=== PATIENT | female | born 1990 | race Caucasian/White ===

== ENCOUNTER 2016-05-30 08:41 | Inpatient (IN) | payer OTHER ==
[~2016-05-30] VITALS: Ht 162.6 cm; Wt 80.3 kg
[2016-05-30] MEDS ORDERED: diphenhydrAMINE 50 mg Capsule PO PRN (09:05)
[2016-05-30] MEDS ORDERED: Sodium Chloride LOK Flush 10 mL Syringe IVFLUSH PRN ×2 (09:05→11:35)
[2016-05-30] MEDS ORDERED: Lactated Ringer's 1,000 ML IV SCH ×3 (09:12→21:39)
[2016-05-30] MEDS ORDERED: Misoprostol 25 mCg/0.25 Tablet VAGINAL SCH (09:15)
[2016-05-30 10:01] LABS: BASOPHILS % (AUTO) 0.1 % (0-3); EOSINOPHILS % (AUTO) 1.3 % (0-5); MONOCYTES % (AUTO) 7.5 % (4-12); Mean Corpuscular Volume 91.5 fL (81-100); NEUTROPHILS % (AUTO) 74.1 % (40-74); Platelet Count 277 bil/L (150-400)
[2016-05-30] MEDS ORDERED: PREN1TAB87 PO (10:10)
--- NOTE | 2016-05-30 10:19 | PCM.HPOB ---
Subjective Date of Service: May 30, 2016 Referring Provider: Admitting Physician: Sofiya Heard MD Primary Care Physician: Pushpa Shaikh MD Attending Physician: Sofiya Heard MD Chief Complaint Hypertension at term History of Present History of Present Illness at 39 weeks 6 days, reports uncomplicated until one week ago were doing routine visit she was found to have elevated blood pressure reading 142/92, 149/96 on recheck. This morning on weekly follow-up she was found to have blood pressure of 139/98, and 152/97 on recheck. 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 Hx Tobacco Use: No Smoking Status: Never Smoker Hx Alcohol Use: Yes (occasional wine, not during ) Hx Substance Use: No Past Family History Family History Maternal grandfather colon cancer Paternal grandfather diabetes type II Paternal grandmother colon cancer Living Arrangement: with Family Review of Systems Constitutional: Y: Chills, Fever, Weakness Eyes: Denies: Vision Changes Cardiovascular: Denies: Chest Pain Respiratory: Denies: Cough, Pleuritic Chest Pain, SOB with Exertion Gastrointestinal: Reports: Diarrhea, Denies: Abdominal Pain, Nausea, Vomiting Genitourinary: Denies: Dysuria Musculoskeletal: Denies: Limitation of Function Skin: Denies: Rash Neurological: Denies: Dizziness, Numbness, Weakness Psychologic: Reports: Nervousness (regarding first delivery) Medications Home medications Daily vitamin Allergy Coded Allergies: Nut Tree (Unverified Allergy, Unknown, 05/30/16) Exam Vital Signs 37.2C 90 bpm 133/87 Weight 176 pounds Exam Baseline heart rate 120, moderate variability. Objective Lying in bed comfortably, no apparent distress. Constitutional: Well-developed, Well-nourished, Normal habitus HEENT: Atraumatic, EOMI, Scleral Anicteric Lungs: Clear to Auscultation Heart: Regular Rate/Rhythm, Normal S1, Normal S2, No Murmurs/Rubs/Gallops Abdomen: Gravid, Normal bowel sounds, No tenderness Lymphatic: Normal: Axilla Palpation of Nodes, Neck Palpation of Nodes Extremities: Pulses Palpable x4, No Edema Neurological/Psychiatric: Alert, Oriented X3, Cooperative, No Acute Distress Neuro: Grossly Neurologically Intact, Normal Tone, Normal Speech, Sensation Intact Labs/Diagnostics Labs CBC, CMP, creatinine protein ratio and crossmatch pending Ultra Sound Ultrasound performed 01/13/2016 showed single living intrauterine gestation placenta posterior, without previa, EFW 39%, heart rate 143 RIK 9.2 with normal anatomic survey. Maternal Blood Type: A Group B Strep Results: Negative Previous with GBS: No Rubella: Immune Lab History: Negative for: Hx Gonorrhea, Hx HIV, Hx Herpes, Hx Syphilis OB Intrapartum Assessment/Plan Assessment 25-year-old woman presents at 39 and 6 days gestation found to have increasing blood pressure, asymptomatic eclampsia symptoms. Membranes intact. With reassuring heart rate tracing. Problems: (1) Elevated blood pressure affecting in third trimester, antepartum Status: Acute ICD Code: O13.3 Pain Management: Not opposed to epidural, but wants to wait before having it placed, if she feels she needs it at all. Pain Evaluation: Adequate Pain Control Intrapartum plan Begin induction with Cytotec. Laboratory evaluation signs of preeclampsia, and organ damage. Continue with induction and plan for spontaneous vaginal delivery. Attending Statement Patient seen and examined. Sent over from clinic for induction of labor due to gestational hypertension. She is doing well and is currently asymptomatic, blood pressures are mildly elevated in the nonsevere range. has otherwise been uncomplicated. Plan will be induction of labor with cervical ripening with cytotec and pitocin when able. Currently cervix is 1/50/-3. Will recheck PIH labs. The remainder of her laboratory data is within normal limits. She is varicella non immune, will vaccinate . Will follow closely, magnesium if severe range blood pressures or severe features of pre-eclampsia identified. Iron Li DO May 30, 2016 10:10 Sofiya Heard MD May 30, 2016 11:56
[2016-05-30] MEDS ORDERED: Methylergonovine 0.2 mg/mL Inj IM PRN ×2 (11:35→21:40)
[2016-05-30] MEDS ORDERED: Oxytocin 30 Units/500 mL LR 30 UNITS in IV Premix 1 EACH IV PRN ×2 (11:35→21:40)
[2016-05-30] MEDS ORDERED: Hemorrhage Kit, Post Partum XX ONE ×2 (11:35→21:40)
[2016-05-30] MEDS ORDERED: Oxytocin 10 Unit/mL Inj IM PRN ×2 (11:35→21:40)
[2016-05-30] MEDS ORDERED: Carboprost 250 mCg/mL Inj IM PRN ×2 (11:35→21:40)
[2016-05-30] MEDS ORDERED: Lactated Ringer's 1,000 ML IV PRN (11:35)
--- NOTE | 2016-05-30 16:47 | PCM.PNOBIP ---
Subjective Date of Service May 30, 2016 Subjective Doing well. Feeling contractions currently. She is s/p one dose of cytotec. She is avila too frequently to place a second dose. Group B Strep Results: Negative Rubella: Immune Blood Type: A Labs Laboratory Tests 05/30/16 09:45: White Blood Count 11.2, Red Blood Count 4.22, Hemoglobin 13.1, Hematocrit 38.6, Mean Corpuscular Volume 91.5, Mean Corpuscular Hemoglobin 31.0, Mean Corpuscular Hemoglobin Concent 33.9, Red Cell Distribution Width 12.9, Platelet Count 277, Neutrophils (%) (Auto) 74.1, Lymphocytes (%) (Auto) 16.7, Monocytes ( %) (Auto) 7.5, Eosinophils (%) (Auto) 1.3, Basophils (%) (Auto) 0.1 Exam Vital Signs Vital Signs Contraction frequency in minutes: MVUs: Vital Signs: VS reviewed, stable (120-30's/60-80's) Heart Tracings Heart Tones Baseline 120/moderate/+ accels bpm Heart Rate Variability: Moderate Heart Rate Accelleration: Present Heart Rate Deceleration: Absent Heart Rate Category: I Tocometry/IUPC Q 1-5 Contraction frequency in minutes: Sterile Vaginal Exam Cervical Dilation: 2 cms Cervical Effacement: 80 % Station: -2 Exam General: Alert, Oriented X3, Cooperative, No Acute Distress (Parish balloon placed, inflated with 50 cc normal saline. ) OB Intrapartum Assessment/Plan Problems: (1) Elevated blood pressure affecting in third trimester, antepartum Plan: Blood pressures reviewed with labs. Labs consistent with mild pre- eclampsia. Pr:Cr ratio 0.33, labs nonsevere, continue to monitor Status: Acute ICD Code: O13.3 Intrapartum plan: Continue expected management (Will start low dose pitocin at 2mu while parish balloon is in place. Continue expectant management. ) Pain Evaluation: Adequate Pain Control Sofiya Heard MD May 30, 2016 16:47
[2016-05-30] MEDS: Lactated Ringer's 1,000 ML IV SCH ×2 (16:52→18:15)
[2016-05-30] MEDS ORDERED: EPHEDrine Sulfate 50 mg/mL Inj IVPUSH PRN (17:40)
[2016-05-30] MEDS ORDERED: fentaNYL 2 mCg/mL-Bupiv 0.125% 100 ML EPIDURAL SCH (17:40)
[2016-05-30] MEDS ORDERED: Atropine 1 mg/10 mL (Code) Syringe IVPUSH PRN (17:40)
[2016-05-30] MEDS ORDERED: Ondansetron 2 mg/mL 2 mL Inj IVPUSH PRN (17:40)
[2016-05-30] MEDS ORDERED: Lactated Ringer's 500 ML IV ONE (17:40)
--- NOTE | 2016-05-30 18:24 | PCM.HPANE ---
Patient Data Date of Service: May 30, 2016 Surgeon Admitting Provider:Sofiya Heard MD Attending Provider:Sofiya Heard MD Primary Care Physician:Pushpa Shaikh MD Other Provider:Stefanie Mcraeingham Anesthesia Reason for Visit Induction INDUCTION Ht/WT & BMI Height (Centimeters): 162 Weight (Kilograms): 80.3 Body Mass Index 30.4 Allergies Coded Allergies: Nut Tree (Unverified Allergy, Unknown, 05/30/16) Diabetes History Hx Diabetes?: No MRSA MRSA: No Medications Hypertension Medication: No Home Meds Incl Beta Tammy: No Reported Medications Vit W-Ca,Fe,FA(<1 mg) ( Vitamins)1 Each Tablet1 Each PO DAILY 05/30/16 History History of ENT Problems?: No Hx of Heart Problems?: Yes Cardiovascular History: Positive for:: Hypertension Hx of Respiratory Problem?: No Hx Neurologic Problems?: No Hx of GI Problems?: No Hx of Problems?: No Female Hx: Positive for:: Currently Hx Musculoskeletal Problems?: No Hx of Psycho/Social Problems?: No Hx Surgeries?: No Hx Any Other Health Problems?: No Hx Alcohol Use: Yes (occasional wine, not during )Hx Substance Use: No Smoking Status: Never Smoker Stop/Bang Treated for Sleep Apnea?: No Do You Have a CPAP Machine?: No AMARILIS Risk Assessment: Low Risk, <3 Yes Risk Assessment Category Category 1A: Patient has history of documented sleep apnea, and HAS NOT received any narcotic, sedative or anesthesia administration during this stay. Category 1B: Patient has history of documented sleep apnea, and HAS received any narcotic , sedative or anesthesia administration during this stay Category 2: Patient has SUSPECTED Obstructive Sleep Apnea, and HAS received any narcotic , sedative or anesthesia administration during this stay. Category 3: Patient has SUSPECTED Obstructive Sleep Apnea and HAS NOT received narcotic, sedative or anesthesia administration during this stay. Category 4: Outpatient in Procedural Areas with known sleep apnea or who screen positive for High Risk via the STOP/BANG questionnaire. Exam Exam Vital Signs See OB documentation General Appearance: Alert, Oriented X3, Cooperative HEENT/AIRWAY: MP 2, Neck Movement (Full), Mouth Opening (Wide) Lungs: Clear to Auscultation, Normal Air Movement Heart: Regular Rate/Rhythm, Normal S1, Normal S2 Meds/Labs/Diagnostics Admission Meds Current Medications Lactated Ringer's (Lr) 1,000 ml @ 125 mls/hr Q8H IV Last administered on 16:52; Start 05/30/16 at 09:05 Misoprostol (Cytotec) 25 mcg Q4H VAGINAL Last administered on 05/30/16 11:17; Start 05/30/16 at 09:15 Labs Test 05/30/16 09:45 05/30/16 10:10 White Blood Count 11.2th/mm3 (3.8-10.1) Red Blood Count 4.22mil/mm3 (3.90-5.20) Hemoglobin 13.1g/dL (12.0-15.6) Hematocrit 38.6% (35.0-46.0) Mean Corpuscular Volume 91.5fL (81-100) Mean Corpuscular Hemoglobin 31.0pg (27.0-35.0) Mean Corpuscular Hemoglobin Concent 33.9% (32.0-37.0) Red Cell Distribution Width 12.9% (12.3-15.4) Platelet Count 277bil/L (150-400) Neutrophils (%) (Auto) 74.1% (40-74) Lymphocytes (%) (Auto) 16.7% (14-46) Monocytes (%) (Auto) 7.5% (4-12) Eosinophils (%) (Auto) 1.3% (0-5) Basophils (%) (Auto) 0.1% (0-3) Urine Random Creatinine 12mg/dL (16-392) Urine Random Total Protein < 4mg/dL (0-15) Urine Protein/Creatinine Ratio 0.33 Sodium Level 137mEq/L (134-144) Potassium Level 4.4mEq/L (3.5-5.2) Chloride Level 105mEq/L (97-108) Carbon Dioxide Level 17mmol/L (18-29) Blood Urea Nitrogen 11mg/dL (6-20) Creatinine 0.50mg/dL (0.57-1.00) Estimat Glomerular Filtration Rate 214mL/min (>59) Glucose Level 83mg/dL (60-99) Calcium Level 8.6mg/dL (8.5-10.1) Total Bilirubin 0.4mg/dL (0.0-1.2) Aspartate Amino Transf (AST/SGOT) 29U/L (0-50) Alanine Aminotransferase (ALT/SGPT) 19U/L (0-32) Alkaline Phosphatase 163U/L (25-150) Total Protein 5.9g/dL (6.4-8.4) Albumin 3.3g/dL (3.4-5.0) Plan Impression Patient chart reviewed, patient interviewed and anesthestic plan with risks, benefits, and alternatives discussed, and informed consent obtained. NPO Status: full ASA Physical Status: ASA2 Mod Systemic Disease (induction for gestational hypertension) Anesthetic Plan: Epidural Bene/Risks/Altern/Consents: Yes HP Complete Prior to Induction: Yes Dominic Starr MD May 30, 2016 17:40
[2016-05-30] MEDS ORDERED: LANOlin HPA 7 Gm Ointment TOPICAL PRN (21:40)
[2016-05-30] MEDS ORDERED: Benzocaine (Dermoplast) 20% 60 Gm Spray TOPICAL PRN (21:40)
[2016-05-30] MEDS ORDERED: Witch Hazel-Glycerin Pads TOPICAL PRN (21:40)
--- NOTE | 2016-05-30 22:17 | OP ---
[address] [address] OPERATIVE REPORT PATIENT: VANIA HASSAN : 1990 MR#: [id number] ADMIT: 05/30/2016 JOB ID: [id number] DATE OF SURGERY: 05/30/2016 PREOPERATIVE DIAGNOSIS(ES): 1. A 39 + 6 week intrauterine here for an induction of labor due to preeclampsia without severe features. 2. Varicella nonimmune status. POSTOPERATIVE DIAGNOSIS(ES): 1. A 39 + 6 week intrauterine here for an induction of labor due to preeclampsia without severe features. 2. Varicella nonimmune status. PROCEDURES PERFORMED: 1. Vacuum-assisted vaginal delivery. SURGEON: Sofiya Heard MD. ANESTHESIA: Epidural. ESTIMATED BLOOD LOSS: 600 cc. FLUID REPLACEMENT: Crystalloid in labor. FINDINGS: Live-born male , born on May 30, 2017 at 20:33 hours weighing 6 pounds 11 ounces with Apgars of 8 at 1 minute, 9 at 5 minutes. COMPLICATIONS: None apparent. INDICATIONS: This is a 25-year-old, G1, P0 female at 39+6 weeks gestation with EDC of May 31, 2016 who was sent over from the clinic for an induction of labor due to newly diagnosed preeclampsia without severe features. was complicated by varicella nonimmune status and preeclampsia. After her blood pressure in clinic was noted to be 150s over 90s and her last visit one week prior was noted to be 140s over 90s, admission PIH labs were collected which showed elevated protein creatinine ratio 0.33 and blood pressure is elevated in the nonsevere range and after discussing the risks, benefits, and alternatives, an induction of labor was started for the patient. The patient did receive a single dose of Cytotec on the morning of admission when her cervix was found to be 1.5 cm dilated. Four hours later, she was avila too frequently to receive a 2nd dose, so a Garcias balloon was placed and Pitocin was started at 2 milliunits to aid her cervical dilation. This was placed around 1600 hours on the 7th approximately 5 hours after she received a dose of Cytotec. The balloon fell out approximately 2 hours after it was placed and she very quickly within an hour progressed to complete cervical dilation and ruptured spontaneously on her own. When she was complete, she was then allowed to push, bringing the infant's vertex to the perineum. An epidural had been placed shortly after the Garcias balloon fell out due to patient discomfort. LABORATORY DATA: Showed blood type of A positive, antibody screen negative, rubella immune, varicella nonimmune, hep B surface antigen negative, RPR nonreactive, GBS negative. DESCRIPTION OF PROCEDURE: The patient was noted to be complete and pushing, so she was placed in dorsal lithotomy position, prepped and draped in the usual sterile fashion for delivery. She was pushing and she was noted to have recurrent heart tone decelerations to the 80s between contractions and they did appear to be late decelerations in nature. She would occasionally have recovery of the baseline into the 140s, but did have recurrent prolonged late decelerations after contractions and, because of this, decision was made to expedite delivery with a vacuum placement. Risks, benefits and alternatives to vacuum placement were discussed. Following this, she was asked to push and the vacuum was inflated to the green zone and with that contraction, she pushed and the vertex was then delivered atraumatically. The anterior shoulder delivered easily, followed by the posterior shoulder. The remainder of the infant was then easily delivered. There was noted to be two nuchal cords and what was noted to be a long umbilical cord. The vacuum was then released and the infant was placed on the mother's abdomen. After a 60 second cord clamping delay, the cord was then clamped and cut. Cord blood was then obtained. Pitocin was started per protocol, and the placenta delivered intact spontaneously and was passed off the table. Bimanual massage revealed no remaining placental membranes and she was firm with bimanual massage. Examination of the cervix showed a deep second-degree laceration with brisk arterial bleeding as well as bilateral labial vault lacerations. Using 2-0 Vicryl, several stitches in the perineal body were placed to help facilitate hemostasis and then the remainder of the second-degree was repaired with 3-0 Vicryl in the usual running fashion. Good hemostasis was noted following this. The left labial laceration was repaired with 4-0 Vicryl in a running, nonlocking fashion and a [id number]-[id number] stitch was placed on the right labial laceration using 4-0 Vicryl. The patient tolerated the procedure well. Recovered in labor and delivery with her infant. All sponge, needle, and instrument counts were correct. MTDD
--- NOTE | 2016-05-31 00:21 | PCM.ANEP1 ---
Post Anesthesia Phase 1 PACU Phase 1 Assessment Date of Service: May 30, 2016 Vital Signs See OB documentation Anesthetic Administered: Regional Block Level of Alertness: Awake, talking VASQUEZ's with Equal Strength: Yes Pain: No Nausea or Vomiting: No Oxygen Delivery: Room Air Lungs: Normal Air Movement Dominic Starr MD May 31, 2016 00:21
[2016-05-31] MEDS ORDERED: Sodium Chloride LOK Flush 10 mL Syringe IVFLUSH SCH (00:30)
[2016-05-31 07:02] LABS: Mean Corpuscular Hemoglobin 30.9 pg (27.0-35.0); Mean Corpuscular Volume 91.9 fL (81-100)
[2016-05-31] MEDS ORDERED: Ascorbic Acid 500 mg Tablet PO SCH (08:00)
--- NOTE | 2016-05-31 08:01 | PCM.DC.OB ---
Obstetrical Discharge Summary Date of Service May 31, 2016 Date of hospital admission May 30, 2016 at 08:45 Date of Discharge: May 31, 2016 Providers Admitting Physician: Sofiya Heard MD Primary Care Physician: Pushpa Shaikh MD Attending Physician: Sofiya Heard MD Diagnosis at Time of Discharge Pre-eclampsia without severe features. Induction of labor at 36wks Vacuum-assisted labor 2nd degree perineal laceration status post repair Problems: (1) Elevated blood pressure affecting in third trimester, antepartum Status: Acute ICD Code: O13.3 Brief History and Physical: at 39 weeks 6 days, reported uncomplicated until one week ago during doing routine visit she was found to have elevated blood pressure reading 142/92, 149/96 on recheck. This morning on weekly follow-up she was found to have blood pressure of 139/98, and 152/97 on recheck. A positive Negative antibodies Varicella nonimmune Rubella immune RPR nonreactive Hepatitis B screening antigen was negative HIV screen nonreactive Group B strep negative GC/CT negative Gestational diabetes screen negative Physical exam on day of discharge. General laying in bed, comfortably, no apparent distress HEENT: Normal cephalic, atraumatic, extraocular muscles intact, Cardio: Regular rate and rhythm, no clicks murmurs or rubs, peripheral pulses 2/ 4 radial and dorsal talus. Pulmonary: Clear to auscultation bilaterally, equal chest excursion. Abdomen: Mild discomfort to palpation, fundal height 2 fingerbreadths below umbilicus. Extremities: No edema, no pain, no cords, Neuro: Cranial nerves II through X grossly intact, 2+ patellar reflexes. Hospital Course: Out of concern for the child in the context of maternal preeclampsia along with occasional decelerations on heart tracing, Cytotec was started, membranes artificially ruptured, Garcias balloon cervical dilation which fell out after 2 hours, and delivery took place later same day with vacuum assist delivery, and 600 mL EBL. ([Ascorbic Acid]) 500 MG TABLET 500 MG PO BIDWM Prescribed by: SHARON AGUDELO DO Docusate Sodium (Colace) 100 Mg Capsule 100 MG PO DAILY Prescribed by: SHARON AGUDELO DO Ferrous Sulfate (Feosol) 325 Mg Tablet 325 MG PO BIDWM Prescribed by: SHARON AGUDELO DO Ibuprofen (Ibuprofen) 800 Mg Tablet 800 MG PO Q6H PRN PRN For Pain Prescribed by: SHARON AGUDELO DO Vit W-Ca,Fe,FA(<1 mg) ( Vitamins) 1 Each Tablet 1 EACH PO DAILY (Reported) Last Taken: Unknown Dose on 05/30/16 0800 oxyCODONE-Acetaminophen 5-325 mg ( oxyCODONE-Acetaminophen 5-325 mg) 1 Each Tablet 1 TAB PO 4-6hrs PRN PRN For Pain Prescribed by: SHARON AGUDELO DO Discharge Medications: Oxycodone acetaminophen 53 25 mg every 4-6 hours by mouth as needed for pain Colace 100 mg twice a day by mouth as needed for constipation #60-100 Ferrous sulfate 325 mg by mouth daily #90 Vitamin C 500 mg by mouth daily #90 with iron Ibuprofen 800 mg by mouth, take 1 tab every 8 hours as needed for pain Disposition Please follow-up in [facility] for visit in 1 week Follow-up plan Follow-up with women's health in 1 week Patient instructions Continue your vitamin. Please take the iron and vitamin c together for your anemia. Do not take more pain medication (Percocet) than is necessary -- less is better. Percocet pills have Tylenol (acetaminophen) in them at 325mg per pill. Do not take Tylenol in addition to your pain medication but should take one or the other. Both iron and Percocet can give you constipation so you have also been given a prescription for docusate to keep you regular. Be sure to follow up in 2 weeks and then again in 6 weeks at [facility]. ( Follow up for without complications is 6 weeks) Pelvic rest for 6 weeks (nothing per vagina including intercourse, tampons) If you have a fever greater than 100.4, please call [facility]. There is always someone production gear cutter to talk to. If you have an increase in bleeding, call [facility]. If you have a lot of bleeding suddenly, especially if you have symptoms of dizziness & weakness with it, get emergency help. Additional information . Sharon Li DO May 31, 2016 08:01
--- NOTE | 2016-05-31 08:07 | PCM.DIMED ---
Discharge Instructions Date of Service May 31, 2016 Dates of Hospitalization May 30, 2016 at 08:45 Discharge Diagnosis Discharge Diagnosis Preeclampsia without severe features Induction of labor Vacuum-assisted delivery 600 mL estimated blood loss. Medication Instructions Oxycodone acetaminophen 53 25 mg every 4-6 hours by mouth as needed for pain Colace 100 mg twice a day by mouth as needed for constipation #60-100 Ferrous sulfate 325 mg by mouth daily #90 Vitamin C 500 mg by mouth daily #90 with iron Ibuprofen 800 mg by mouth, take 1 tab every 8 hours as needed for pain Diet No restrictions Activity Other (no heavy lifting or rigorous physical activity) Call your provider Fever or Chills, Shortness of breath, Bleeding, Chest pain, Vomitting, Excessive diarrhea, Weakness (unilateral) Patient Instructions Continue your vitamin. Please take the iron and vitamin c together for your anemia. Do not take more pain medication (Percocet) than is necessary -- less is better. Percocet pills have Tylenol (acetaminophen) in them at 325mg per pill. Do not take Tylenol in addition to your pain medication but should take one or the other. Both iron and Percocet can give you constipation so you have also been given a prescription for docusate to keep you regular. Be sure to follow up in 2 weeks and then again in 6 weeks at [facility]. ( Follow up for without complications is 6 weeks) Pelvic rest for 6 weeks (nothing per vagina including intercourse, tampons) If you have a fever greater than 100.4, please call [facility]'s [facility]. There is always someone information services vice president to talk to. If you have an increase in bleeding, call [facility]. If you have a lot of bleeding suddenly, especially if you have symptoms of dizziness & weakness with it, get emergency help. Follow-up plan Follow-up with women's health in 1 week Follow-up with PCP in: 2 weeks [facility] Follow-up in: 1 week Iron Li DO May 31, 2016 08:07
[2016-05-31] MEDS ORDERED: Ascorbic Acid PO (08:12)
[2016-05-31] MEDS ORDERED: FERR-74 PO (08:12)
[2016-05-31] MEDS ORDERED: DOCU-41 PO (08:12)
[2016-05-31] MEDS ORDERED: OXYC1TAB24 PO (08:12)
[2016-05-31] MEDS ORDERED: IBUP800T28 PO (08:12)
[2016-05-31 14:00] VITALS: BP 134/75; PULSE 64; RESP 16
== END 2016-05-31 14:34 | disposition home or self-care (01) | DRG 775 ==
LOC: FBC 08:45
PROVIDERS: ADMIT Obstetrics & Gynecology; ATTEND Obstetrics & Gynecology
PROC: 10D07Z6 Extraction of Products of Conception, Vacuum, Via Natural or Artificial Opening (ICD-10-PCS; principal; 2016-05-30)
PROC: 0KQM0ZZ Repair Perineum Muscle, Open Approach (ICD-10-PCS; 2016-05-30)
PROC: 0UQMXZZ Repair Vulva, External Approach (ICD-10-PCS; 2016-05-30)
PROC: 3E033VJ Introduction of Other Hormone into Peripheral Vein, Percutaneous Approach (ICD-10-PCS; 2016-05-30)
PROC: 0U7C7ZZ Dilation of Cervix, Via Natural or Artificial Opening (ICD-10-PCS; 2016-05-30)
DX: O14.94 Unspecified pre-eclampsia, complicating childbirth (principal); O71.82 Other specified trauma to perineum and vulva; O70.1 Second degree perineal laceration during delivery; O76 Abnormality in fetal heart rate and rhythm complicating labor and delivery; O69.89X0 Labor and delivery complicated by other cord complications, not applicable or unspecified; O69.1XX0 Labor and delivery complicated by cord around neck, with compression, not applicable or unspecified; Z3A.39 39 weeks gestation of pregnancy; Z37.0 Single live birth